=== PATIENT | female | born 1965 | race Caucasian/White ===

== ENCOUNTER 2018-05-11 21:43 | Inpatient (IN) | payer OTHER ==
--- NOTE | 2018-05-11 22:51 | PDOC ---
History of Present Illness <Rosa M Calderón - Last Filed: 05/12/18 03:15> - General History Source: Patient Exam Limitations: No Limitations <Vianey De Dios - Last Filed: 05/12/18 03:39> - General Chief Complaint: Pain Stated Complaint: PAIN Time Seen by Provider: 05/11/18 22:15 Past History <Rosa M Calderón - Last Filed: 05/12/18 03:15> - Past Medical History COPD: No Psychiatric Problems: Yes - Surgical History Cholecystectomy: Yes - Suicide/Smoking/Psychosocial Hx Smoking History: Current every day smoker Number of Cigarettes Smoked Daily: 20 Information on smoking cessation initiated: No <VaVianey - Last Filed: 05/12/18 03:39> - Past Medical History Allergies/Adverse Reactions: Allergies Allergy/AdvReac Type Severity Reaction Status Date / Time Penicillins Allergy Verified 05/11/18 21:47 Home Medications: Ambulatory Orders Allopurinol [Zyloprim -] 100 mg PO BID 05/11/18 Divalproex *ER* [Depakote *ER* -] 750 mg PO BID 05/11/18 Furosemide 40 mg PO DAILY 05/11/18 Levothyroxine [Synthroid -] 125 mcg PO DAILY 05/11/18 Multivitamin [Multiple Vitamins] 1 each PO DAILY 05/11/18 Quetiapine Fumarate [Seroquel -] 400 mg PO BID 05/11/18 *Physical Exam - Vital Signs Last Vital Signs Temp Pulse Resp BP Pulse Ox 97.9 F 107 H 131/83 97 05/11/18 21:48 05/11/18 21:48 05/11/18 21:48 05/11/18 21:48 <Rosa M Calderón - Last Filed: 05/12/18 03:15> - Vital Signs Last Vital Signs Temp Pulse Resp BP Pulse Ox 97.9 F 107 H 131/83 97 05/11/18 21:48 05/11/18 21:48 05/11/18 21:48 05/11/18 21:48 - Physical Exam General Appearance: No: Apparent Distress Respiratory/Chest: positive: Lungs Clear, Normal Breath Sounds. negative: Respiratory Distress Cardiovascular: positive: Regular Rhythm, Regular Rate, S1, S2. negative: Murmur Gastrointestinal/Abdominal: positive: Tender (mild TTP in LLQ), Soft. negative : Distended, Guarding, Rebound, Mass Rectal Exam: positive: other (Unable to obtain any stool sample on MARIA C; rectal vault empty). negative: hemorrhoids Integumentary: positive: Normal Color Neurologic: positive: Alert, Normal Mood/Affect <Vianey De Dios - Last Filed: 05/12/18 03:39> Moderate Sedation - Procedure Monitoring Vital Signs: Procedure Monitoring Vital Signs Temperature 97.9 F 05/11/18 21:48 Pulse Rate 107 H 05/11/18 21:48 Respiratory Rate Blood Pressure 131/83 05/11/18 21:48 O2 Sat by Pulse Oximetry (%) 97 05/11/18 21:48 <Rosa M Calderón - Last Filed: 05/12/18 03:15> - Procedure Monitoring Vital Signs: Procedure Monitoring Vital Signs Temperature 97.9 F 05/11/18 21:48 Pulse Rate 107 H 05/11/18 21:48 Respiratory Rate Blood Pressure 131/83 05/11/18 21:48 O2 Sat by Pulse Oximetry (%) 97 05/11/18 21:48 <Vianey De Dios - Last Filed: 05/12/18 03:39> ED Treatment Course - LABORATORY CBC & Chemistry Diagram: 05/11/18 22:51 05/11/18 23:13 - ADDITIONAL ORDERS Additional order review: Laboratory Results 05/11/18 05/11/18 23:13 22:51 Sodium 141 Cancelled Potassium 3.0 L Cancelled Chloride 103 Cancelled Carbon Dioxide 31 Cancelled Anion Gap 7 L Cancelled BUN 54 H Cancelled Creatinine 2.5 H Cancelled Creat Clearance w eGFR 20.07 Cancelled Random Glucose 98 Cancelled Calcium 8.5 Cancelled 05/11/18 22:51 RBC 4.13 MCV 95.4 MCHC 34.5 RDW 14.8 MPV 9.1 Neutrophils % 71.9 Lymphocytes % 15.6 Monocytes % 11.1 H Eosinophils % 0.9 Basophils % 0.5 - RADIOLOGY Radiology Studies Ordered: Category Date Time Status YESSICA [CHEST X-RAY PORTABLE*] [RAD] Stat Radiology 05/12/18 02:49 Taken - Medications Given in the ED: ED Medications Discontinued Medications Generic Name Dose Route Start Last Admin Trade Name Freq PRN Reason Stop Dose Admin Acetaminophen 650 mg 05/12/18 00:36 05/12/18 00:43 Tylenol - PO 05/12/18 00:37 650 mg ONCE ONE Administration Magnesium Sulfate 2 gm 05/11/18 23:56 05/12/18 00:20 Magnesium Sulfate IVPB 05/11/18 23:57 2 gm ONCE ONE Administration Potassium Chloride 40 meq 05/11/18 23:56 05/12/18 00:20 K-Dur - PO 05/11/18 23:57 40 meq ONCE ONE Administration Potassium Chloride 20 meq 05/12/18 02:19 05/12/18 02:29 K-Dur - PO 05/12/18 02:20 20 meq ONCE ONE Administration <Rosa M Calderón - Last Filed: 05/12/18 03:15> - LABORATORY CBC & Chemistry Diagram: 05/11/18 22:51 05/11/18 23:13 <Vianey De Dios - Last Filed: 05/12/18 03:39> Medical Decision Making - Medical Decision Making 52 y/o F hx of depression, hypothyroidism, kidney disease (on Lasix), cholecystectomy 2015, hysterectomy 2016 presents with lower abdominal pain from today along with rectal bleeding. Mentions she suffers from chronic constipation for years. Yesterday, she took 3 pills of Hair laxative caplets. Today, around 1 PM, had BM with BRBPR. Later had some diarrhea with blood and now states she is just having bleeding from rectum. Denies rectal pain , fever, sob, cp, n/v, melena. Last colonoscopy was 2015 which was unremarkable per patient. No hemorrhoids noted on exam Unable to get guaiac as no stool in vault Consider diverticulitis? Plan: Labs, CT A/P 05/11/18 22:51 Labs show K of 3 (likely due to Lasix use) - repleted via PO potassium BUN/Cr elevated (patient hx of kidney disease, no prior to trend to) Will get CT A/P without contrast 05/12/18 00:46 CT A/P raises concern for colitis, possibly infectious in origin Patient having active rectal bleeding in ER Will start on Levaquin and Flagyl Repeat labs ordered Patient to be admitted for further eval 05/12/18 03:29 <Vianey De Dios - Last Filed: 05/12/18 03:39> *DC/Admit/Observation/Transfer - Discharge Dispostion Decision to Admit order: Yes <Rosa M Calderón - Last Filed: 05/12/18 03:15> - Discharge Dispostion Decision to Admit order: Yes <Vianey De Dios - Last Filed: 05/12/18 03:39> Diagnosis at time of Disposition: Colitis - Discharge Dispostion Condition at time of disposition: Stable
[2018-05-11 22:58] LABS: BASO % 0.5 % (0-2.0); EOS % 0.9 % (0-4.5); HEMATOCRIT 39.4 % (32.4-45.2); HEMOGLOBIN 13.6 GM/dL (10.7-15.3); LYMPH % 15.6 % (8-40); MCH 32.9 pg (25.7-33.7); MCHC 34.5 g/dl (32.0-36.0); MEAN CELL VOLUME 95.4 fl (80-96); MEAN PLT VOLUME 9.1 fl (7.5-11.1); MONO % 11.1 % (3.8-10.2); NEUT % 71.9 % (42.8-82.8); PLATELET COUNT 158 K/MM3 (134-434); RBC 4.13 M/mm3 (3.60-5.2); RDW 14.8 % (11.6-15.6); WHITE BLOOD COUNT 8.5 K/mm3 (4.0-10.0)
[2018-05-11 23:48] LABS: ANION GAP 7 MMOL/L (8-16); BLOOD UREA NITROGEN 54 mg/dL (7-18); CALCIUM 8.5 mg/dL (8.5-10.1); CHLORIDE 103 mmol/L (98-107); CO2 31 mmol/L (21-32); CREATININE 2.5 mg/dL (0.55-1.3); GLUCOSE,RANDOM 98 mg/dL (74-106); SODIUM 141 mmol/L (136-145)
[2018-05-11] MEDS ORDERED: MAGNESIUM SULF 50% (8.12 MEQ/2 ML-1 GM VIAL) IVPB ONE (23:56)
[2018-05-11] MEDS ORDERED: POTASSIUM CHLORIDE TABS 20 MEQ TABLET.ER (FP) PO ONE (23:56)
[2018-05-12] MEDS ORDERED: POTASSIUM CHLORIDE TABS 20 MEQ TABLET.ER (FP) PO ONE ×3 (00:12→02:22)
[2018-05-12] MEDS ORDERED: MAGNESIUM SULF 50% (8.12 MEQ/2 ML-1 GM VIAL) ONE (00:13)
[2018-05-12] MEDS ORDERED: ACETAMINOPHEN 325 MG TABLET (FP) PO ONE ×2 (00:36→21:38)
[2018-05-12] MEDS ORDERED: ACETAMINOPHEN 325 MG TABLET (FP) ONE (00:40)
--- NOTE | 2018-05-12 03:53 | PN ---
Teaching Attending Note Name of Resident: Sebas Anthony ATTENDING PHYSICIAN STATEMENT I saw and evaluated the patient. I reviewed the resident's note and discussed the case with the resident. I agree with the resident's findings and plan as documented. SUBJECTIVE: Seen and examined; please see resident note for further historical details. Briefly, this is a 52 y/o female presenting to the ER with a CC of abdominal pain and rectal bleeding. She is a patient of Dr. Weathers. She was consitpated for several days causing some discomfort; she took several stool softeners and has since had copious amounts of bloody diarrhea since (she did not try to give the number). She has a history of CKD that she attributes to antidepressant ( maybe [place]?) use and states that her baseline Cr is ~1.9. This is her first visit here and we don't have any baseline labs. CT done in the ER shows moderate nonspecific wall thickening of the descending and sigmoid colon most likely due to infectious colitis, though they couldn't rule out mild ischemic colitis. Mild hepatomegaly and steatosis noted. Furthermore, they could not rule out any renal cortical mass and stated OP MRI may be required. She has no neurological complaints but the report incidentally mentions moderate to severe degenerative disc disease in the lower lumbar spine with moderate to severe spinal canal and neural foraminal narrowing in the lower levels. 10 sys ROS done and negative aside from HPI PMH, PSH, Family hx, Social hx reviewed Medication list reviewed OBJECTIVE: VS, labs, imaging reviewed NAD, AAO, resting comfortably in bed NC AT EOMI PERRLA RRR s1/2 no mgr NT ND +BS CN2-12 wnl, no fnd Normal mood, appropriate affect CT abdoen and pelvis discussed in HPI ASSESSMENT AND PLAN: Patient presents for bloody diarrhea; found to have infectious vs. mild ischemic colitis with THERESE on CKD and incidentally found to have potential renal mass as well as moderate to severe degenerative disc disease alongside moderate to severe canal/foramenal narrowing in lumbar area. 1) Bloody Diarrhea likely 2/2 Acute Colitis -Infectious vs. ischemic; CT results noted, awaiting final report. -Checking lactate, LDH, CPK; empirically covering with levaquin/flagyl. Check lipid pannel -NPO, protonix, consulting her GI specialist Dr. Webb. She states she had a scope 2 years ago with only polyps found. -Followup stool studies and bloodwork 2) THERESE on CKD -Hydrating with LR@100/hr; obtain FeUrea (on lasix at home) and consider HILLARY -Likely 2/2 volume depletion as well as nephrotoxic meds. Hold all nephrotoxins. 3) Moderate to severe spinal canal and neural foraminal narrowing/mod to severe degenerative disc disease -Consider checking L-spine MRI; if we do we should include the kidneys. Will hold off on ordering to see if any OP workup has been done (can contact PCP in the morning). 4) Depression -Reconcile and continue home medications assuming they are not nephrotoxic 5) Hx Hypothyroidism -Check TSH; continue LT4
--- NOTE | 2018-05-12 04:00 | HP ---
CHIEF COMPLAINT: BRBPR PCP: Straight Truck Driver: Dr. Bates GI: Dr. Webb HISTORY OF PRESENT ILLNESS: 52yo F with history of depression, CKD (baseline 1.9 Cr), chronic constipation, hypothyroidism who presents today with BRBPR and mid-abdomen discomfort today. Pt reports she had multiple bouts of diarrhea with blood that was evident in the physical bowl. Pt reports she took 3 stool softener pills to help with her constipation. Afterwards she developed diarrhea with bright blood (she did not try to estimate number of episodes). She reports having a colonoscopy 2 years ago performed by Dr[address] Webb, with multiple polypectomies, however (as reported by the patient) the polyps were benign. In the ED CT A/P was performed which showed moderate wall thickening of the descending and sigmoid colon suggestive of infectious vs. ischemic colitis. Incidentally, mod to severe spinal canal and neural foraminal narrowing was found in the lower lumbar spine, however pt denies any parasthesias, lower extremity weakness, changes in urinary habits, and nadia lower lumbar pain at this moment Recent Travel: Denies PAST MEDICAL HISTORY: Depression CKD Chronic constipation PAST SURGICAL HISTORY: Cholecystectomy 2016 Hysterectomy 2011 Social History: Smoking: Denies Alcohol: Denies Drugs: Denies Family History: Denies any family history of colon ca Allergies Penicillins Allergy (Verified 05/11/18 21:47) --Rash when child HOME MEDICATIONS: Home Medications Medication Instructions Recorded Allopurinol [Zyloprim -] 100 mg PO BID 05/11/18 Divalproex *ER* [Depakote *ER* -] 750 mg PO BID 05/11/18 Furosemide 40 mg PO DAILY 05/11/18 Levothyroxine [Synthroid -] 125 mcg PO DAILY 05/11/18 Multivitamin [Multiple Vitamins] 1 each PO DAILY 05/11/18 Quetiapine Fumarate [Seroquel -] 400 mg PO BID 05/11/18 REVIEW OF SYSTEMS As per HPI PHYSICAL EXAMINATION Vital Signs 05/11/18 21:48 Temperature 97.9 F Pulse Rate 107 H Blood Pressure 131/83 O2 Sat by Pulse 97 Oximetry (%) GENERAL: Awake, alert, and fully oriented, in no acute distress. HEENT: NC/AT, VERONICA, sclera anicteric, MMM, LUNGS: CTA bilaterally. No wheezes, and no crackles. No accessory muscle use. HEART: RRR , normal S1 and S2 without murmur ABDOMEN: Soft, obese, NT/ND, normoactive BS, no guarding, no rebound, no organomegaly RECTAL: Refused MUSCULOSKELETAL: No CVA tenderness. EXTREMITIES: 2+ distal pulses, warm, well-perfused. No calf tenderness. Nonpitting edema present in b/l ankles NEUROLOGICAL: smokehouse operator II-XII intact. Lower extremity sensation intact b/l. Lower extremity strength 5/5 symmetrical. Normal speech. PSYCHIATRIC: Flat affect. Good eye contact. SKIN: Warm, dry, no rashes Laboratory Results 05/11/18 05/11/18 05/11/18 22:51 22:51 23:13 WBC 8.5 RBC 4.13 Hgb 13.6 Hct 39.4 MCV 95.4 MCH 32.9 MCHC 34.5 RDW 14.8 Plt Count 158 MPV 9.1 Absolute Neuts (auto) 6.1 Neutrophils % 71.9 Lymphocytes % 15.6 Monocytes % 11.1 H Eosinophils % 0.9 Basophils % 0.5 Nucleated RBC % 0 Sodium Cancelled 141 Potassium Cancelled 3.0 L Chloride Cancelled 103 Carbon Dioxide Cancelled 31 Anion Gap Cancelled 7 L BUN Cancelled 54 H Creatinine Cancelled 2.5 H Creat Clearance w eGFR Cancelled 20.07 Random Glucose Cancelled 98 Calcium Cancelled 8.5 ASSESSMENT/PLAN: BRBPR 2/2 to acute colitis/stercolitis Acute on chronic kidney insufficiency Spinal canal stenosis with DDD Incidental Renal Cortical mass Depression Hypothyroidism --Likely 2/2 to chronic constipation vs. infectious --Reviewed CT imaging --Continue Levaquin 750mg qDaily and Flagyl 500mg q8h IVPB for empiric coverage --Monitor H/H; now WNL --LR@100cc/hr --NPO for now --Stool cultures ordered --Protonix BID ordered --GI consulted --THERESE likely 2/2 to prerenal causes --FEUrea ordered --Renal ultrasound considered if initial hydration does not improve --Hold home Lasix and avoid nephrotoxic agents --Outpatient MRI f/u needed for renal cortical mass as recommended by radiology --Consider MRI L-spine and possible neurosurgical consult if cannot obtain outpatient reports --Stable neurological symptoms at this point --Check TSH --Continue Synthroid once home doses verified --Continue home antidepressants FEN: Fluid: LR @100cc/hr Electrolyte abnormalities: Hypokalemia; repleted in ED and wll monitor Nutrition: NPO currently PPX: DVT - SCDs; AC on hold due to bleeding GI - Protonix BID IVP Dispo: Med-surg Case discussed with Dr. Oscar Anthony, DO - IM PGY-2 Visit type - Emergency Visit Emergency Visit: Yes ED Registration Date: 05/12/18 Care time: The patient presented to the Emergency Department on the above date and was hospitalized for further evaluation of their emergent condition. - New Patient This patient is new to me today: Yes Date on this admission: 05/12/18 - Critical Care Critical Care patient: No
[2018-05-12] MEDS ORDERED: SODIUM CHLORIDE 1,000 ML IV SCH (04:15)
[2018-05-12] MEDS ORDERED: LACTATED RINGERS SOLUTION 1,000 ML/1,000 ML INFUS.BAG IV SCH (04:30)
[2018-05-12] MEDS ORDERED: ACETAMINOPHEN 1000 MG/100 ML VIAL (NON FORMULARY) IVPB ONE (06:14)
[2018-05-12 06:33] LABS: BASO % 0.2 % (0-2.0); EOS % 0.5 % (0-4.5); HEMATOCRIT 39.2 % (32.4-45.2); HEMOGLOBIN 13.7 GM/dL (10.7-15.3); LYMPH % 17.4 % (8-40); MCH 32.8 pg (25.7-33.7); MCHC 34.9 g/dl (32.0-36.0); MEAN CELL VOLUME 94.1 fl (80-96); MEAN PLT VOLUME 9.6 fl (7.5-11.1); MONO % 11.7 % (3.8-10.2); NEUT % 70.2 % (42.8-82.8); PLATELET COUNT 176 K/MM3 (134-434); RBC 4.17 M/mm3 (3.60-5.2); RDW 14.9 % (11.6-15.6); WHITE BLOOD COUNT 12.6 K/mm3 (4.0-10.0)
[2018-05-12] MEDS ORDERED: ACETAMINOPHEN INJECTION 100 ML IVPB ONE (07:06)
[2018-05-12 07:17] LABS: ANION GAP 8 MMOL/L (8-16); BLOOD UREA NITROGEN 49 mg/dL (7-18); CALCIUM 9.6 mg/dL (8.5-10.1); CHLORIDE 104 mmol/L (98-107); CO2 26 mmol/L (21-32); CREATININE 2.4 mg/dL (0.55-1.3); GLUCOSE,RANDOM 116 mg/dL (74-106); MAGNESIUM 3.1 mg/dL (1.8-2.4); PHOSPHOROUS 3.3 mg/dL (2.5-4.9); POTASSIUM 3.9 mmol/L (3.5-5.1); SODIUM 137 mmol/L (136-145)
[2018-05-12] MEDS: PANTOPRAZOLE SODIUM 40 MG VIAL IVPUSH SCH ×2 (09:28→21:17)
--- NOTE | 2018-05-12 10:50 | PN ---
Progress Note (short form) - Note Progress Note: states abdominal pain has resolved. no episodes of diarrhea since this AM and bleeding has stopped. denies Cp, SOB, fever, chills, N/v/C, states she suffers from chronic constipation and typically takes laxatives with good response.1st episode of BRBPR. no recent abx use. no sick contacts Current Medications Generic Name Dose Route Start Last Admin Trade Name Shelley PRN Reason Stop Dose Admin Lactated Ringer's 1,000 ml in 1,000 mls @ 100 mls/hr 05/12/18 04:30 05/12/18 04:45 Lactated Ringers Solution IV 100 mls/hr ASDIR ELDON Administration Metronidazole 500 mg in 100 mls @ 100 mls/hr 05/12/18 10:00 05/12/18 09:28 Flagyl 500mg Premixed Ivpb - IVPB 100 mls/hr Q8H-IV ELDON Administration Levofloxacin 750 mg in 150 mls @ 100 mls/hr 05/13/18 10:00 Levaquin 750 Mg Premixed Ivpb - IVPB DAILY ELDON Protocol Pantoprazole Sodium 40 mg 05/12/18 10:00 05/12/18 09:28 Protonix Iv IVPUSH 40 mg BID ELDON Administration Last Vital Signs Temp Pulse Resp BP Pulse Ox 98.1 F 97 H 16 130/76 96 05/12/18 08:18 05/12/18 08:18 05/12/18 08:18 05/12/18 08:18 05/12/18 08:18 General NAD CV S1 S2 RRR no murmur/rub/gallop Lungs CTA B/L no wheezing/rales/rhonchi abdomen soft NT/ND obese CBCD WBC 12.6 K/mm3 (4.0-10.0) H 05/12/18 05:37 RBC 4.17 M/mm3 (3.60-5.2) 05/12/18 05:37 Hgb 13.7 GM/dL (10.7-15.3) 05/12/18 05:37 Hct 39.2 % (32.4-45.2) 05/12/18 05:37 MCV 94.1 fl (80-96) 05/12/18 05:37 MCHC 34.9 g/dl (32.0-36.0) 05/12/18 05:37 RDW 14.9 % (11.6-15.6) 05/12/18 05:37 Plt Count 176 K/MM3 (134-434) 05/12/18 05:37 MPV 9.6 fl (7.5-11.1) 05/12/18 05:37 CMP Sodium 137 mmol/L (136-145) 05/12/18 05:37 Potassium 3.9 mmol/L (3.5-5.1) 05/12/18 05:37 Chloride 104 mmol/L (98-107) 05/12/18 05:37 Carbon Dioxide 26 mmol/L (21-32) 05/12/18 05:37 Anion Gap 8 MMOL/L (8-16) 05/12/18 05:37 BUN 49 mg/dL (7-18) H 05/12/18 05:37 Creatinine 2.4 mg/dL (0.55-1.3) H 05/12/18 05:37 Creat Clearance w eGFR 21.04 (>60) 05/12/18 05:37 Calcium 9.6 mg/dL (8.5-10.1) 05/12/18 05:37 A/P 52yo F with PMH depression, hypothyroid, CKD presents with abdominal pain and BRBPR 1. Infectious colitis- do not suspect ischemic based on clinical presentation and labs. on Flagyl and levaquin day 1. IVF and pain control. will likely require colonoscopy inpatient vs outpatient per GI. f/u stool studies. GI on board 2. acute on CKD- possibly medication vs infectin vs dehydration. baseline Cr 1.9. will cont to hydrate. nothing seen on CT scan concerning. consider nephrology 3. hypokalemia- resolved 4. hypothyroid- cont LT4 5. depression- cont home medications 6. gout- would hold allopurinol in setting of kamron 7. DVT ppx- start hep sq Visit type - Emergency Visit Emergency Visit: Yes ED Registration Date: 05/12/18 Care time: The patient presented to the Emergency Department on the above date and was hospitalized for further evaluation of their emergent condition. - New Patient This patient is new to me today: Yes Date on this admission: 05/12/18 - Critical Care Critical Care patient: No - Discharge Referral Referred to [facility] Med P.C.: No
[2018-05-12 11:04] VITALS: BMI 37.4
--- NOTE | 2018-05-12 11:29 | CON.GI ---
Consult Consult Specialty:: Gastroenterology Referred by:: Dr Sebas Anthony Reason for Consultation:: Diarrhea and rectal bleeding - History of Present Illness Chief Complaint: Lower abdominal cramps, diarrhea and bleeding History of Present Illness: 52F was constipated and took 3 Colace tablets on 05/10. On 05/11 she had a hard formed BM followed my multiple diarrhea stools and lower abdominal cramps. Developed hematochezia with hemorrhoidal itch last night. Today everything has resolved and she is hungry. She has colon polyps removed by me in 2015. No recent foreign travel or antibiotic usage. - History Source History Provided By: Patient Limitations to Obtaining History: No Limitations - Past Medical History Cardio/Vascular: Yes: HTN, Hyperlipdemia Gastrointestinal: Yes: Constipation, Other (colon polyps removed 2015) Hepatobiliary: Yes: Cholelithiasis (s/p lap choly), Other (fatty liver) Renal/: Yes: Renal Failure (? 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, robotic TAHBSO for uterine cancer 2016 [facility]) Psych: Yes: Depression Endocrine: Yes: Hypothyroidism - Past Surgical History Past Surgical History: Yes: Breast Biopsy (R breast lumpectomy for cancer DCIS) , Colonoscopy, Hysterectomy (robotic TAHBSO for uterine cancer 2016 [facility]) Additional Surgical History: Left thoracotomy to remove benign tumor - Alcohol/Substance Use Hx Alcohol Use: No History of Substance Use: reports: None - Smoking History Smoking history: Current every day smoker Have you smoked in the past 12 months: No Aproximately how many cigarettes per day: 20 - Social History Usual Living Arrangement: With Significant Other ADL: Independent 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 Place of : [facility] History of Recent Travel: No Home Medications - Allergies Allergies/Adverse Reactions: Allergies Allergy/AdvReac Type Severity Reaction Status Date / Time Penicillins Allergy Verified 05/11/18 21:47 - Home Medications Home Medications: Ambulatory Orders Allopurinol [Zyloprim -] 100 mg PO BID 05/11/18 Divalproex *ER* [Depakote *ER* -] 750 mg PO BID 05/11/18 Furosemide 40 mg PO DAILY 05/11/18 Levothyroxine [Synthroid -] 125 mcg PO DAILY 05/11/18 Multivitamin [Multiple Vitamins] 1 each PO DAILY 05/11/18 Quetiapine Fumarate [Seroquel -] 400 mg PO BID 05/11/18 Family Disease History - Family Disease History Family Disease History: CA: Mother ( 58 renal cancer), Other: Father (COPD) Review of Systems - Review of Systems Constitutional: reports: No Symptoms Eyes: reports: No Symptoms HENT: reports: No Symptoms Neck: reports: No Symptoms Cardiovascular: reports: No Symptoms Respiratory: reports: No Symptoms Gastrointestinal: reports: Abdominal Pain, Constipation, Diarrhea, Rectal Bleeding Breasts: reports: No Symptoms Reported Musculoskeletal: reports: No Symptoms Psychiatric: reports: Anxiety Physical Exam-GI Vital Signs: Vital Signs Temperature 98.3 F 05/12/18 10:48 Pulse Rate 101 H 05/12/18 10:48 Respiratory Rate 18 05/12/18 10:48 Blood Pressure 146/86 05/12/18 10:48 O2 Sat by Pulse Oximetry (%) 99 05/12/18 10:48 CBC,CMP WBC 12.6 K/mm3 (4.0-10.0) H 05/12/18 05:37 RBC 4.17 M/mm3 (3.60-5.2) 05/12/18 05:37 Hgb 13.7 GM/dL (10.7-15.3) 05/12/18 05:37 Hct 39.2 % (32.4-45.2) 05/12/18 05:37 MCV 94.1 fl (80-96) 05/12/18 05:37 MCH 32.8 pg (25.7-33.7) 05/12/18 05:37 MCHC 34.9 g/dl (32.0-36.0) 05/12/18 05:37 RDW 14.9 % (11.6-15.6) 05/12/18 05:37 Plt Count 176 K/MM3 (134-434) 05/12/18 05:37 MPV 9.6 fl (7.5-11.1) 05/12/18 05:37 Absolute Neuts (auto) 8.8 K/mm3 (1.5-8.0) H 05/12/18 05:37 Neutrophils % 70.2 % (42.8-82.8) 05/12/18 05:37 Lymphocytes % 17.4 % (8-40) 05/12/18 05:37 Monocytes % 11.7 % (3.8-10.2) H 05/12/18 05:37 Eosinophils % 0.5 % (0-4.5) 05/12/18 05:37 Basophils % 0.2 % (0-2.0) 05/12/18 05:37 Nucleated RBC % 0 % (0-0) 05/12/18 05:37 Sodium 137 mmol/L (136-145) 05/12/18 05:37 Potassium 3.9 mmol/L (3.5-5.1) 05/12/18 05:37 Chloride 104 mmol/L (98-107) 05/12/18 05:37 Carbon Dioxide 26 mmol/L (21-32) 05/12/18 05:37 Anion Gap 8 MMOL/L (8-16) 05/12/18 05:37 BUN 49 mg/dL (7-18) H 05/12/18 05:37 Creatinine 2.4 mg/dL (0.55-1.3) H 05/12/18 05:37 Creat Clearance w eGFR 21.04 (>60) 05/12/18 05:37 Random Glucose 116 mg/dL (74-106) H 05/12/18 05:37 Lactic Acid 1.6 mmol/L (0.4-2.0) 05/12/18 09:25 Calcium 9.6 mg/dL (8.5-10.1) 05/12/18 05:37 Phosphorus 3.3 mg/dL (2.5-4.9) 05/12/18 05:37 Magnesium 3.1 mg/dL (1.8-2.4) H 05/12/18 05:37 LD Total 311 U/L (84-246) H 05/12/18 05:37 Creatine Kinase 153 U/L (26-192) 05/12/18 05:37 Creatine Kinase Index 1.6 % (0.0-5.0) 05/12/18 05:37 CK-MB (CK-2) 2.5 ng/mL (0.5-3.6) 05/12/18 05:37 TSH 1.66 uIU/ml (0.358-3.74) 05/12/18 05:37 Current Medications Generic Name Dose Route Start Last Admin Trade Name Shelley PRN Reason Stop Dose Admin Lactated Ringer's 1,000 ml in 1,000 mls @ 100 mls/hr 05/12/18 04:30 05/12/18 04:45 Lactated Ringers Solution IV 100 mls/hr ASDIR ELDON Administration Metronidazole 500 mg in 100 mls @ 100 mls/hr 05/12/18 10:00 05/12/18 09:28 Flagyl 500mg Premixed Ivpb - IVPB 100 mls/hr Q8H-IV ELDON Administration Levofloxacin 750 mg in 150 mls @ 100 mls/hr 05/13/18 10:00 Levaquin 750 Mg Premixed Ivpb - IVPB DAILY ELDON Protocol Pantoprazole Sodium 40 mg 05/12/18 10:00 05/12/18 09:28 Protonix Iv IVPUSH 40 mg BID ELDON Administration Constitutional: Yes: No Distress Eyes: Yes: Conjunctiva Clear HENT: Yes: Atraumatic Neck: Yes: Supple Cardiovascular: Yes: Regular Rate and Rhythm Respiratory: Yes: Regular, Other (left thoracotomy incision) Gastrointestinal Inspection: Yes: Scars (healed robotic and laparoscopic incisions) ...Auscultate: Yes: Normoactive Bowel Sounds ...Palpate: Yes: Soft, Other (nontender) ...Percussion: Yes: Tympanitic ...Rectal Exam: Yes: Guaiac Negative, Hemorrhoids/External Edema: No Peripheral Pulses WNL: Yes Neurological: Yes: Alert, Oriented Labs: CBC, BMP 05/12/18 05:37 05/12/18 05:37 Laboratory Tests 05/11/18 05/12/18 23:13 05:37 BUN 54 H 49 H Creatinine 2.5 H 2.4 H Imaging - Results Cat Scan: Report Reviewed (Bakari Mo Name: KAYLEY SPAULDING DEPARTMENT OF RADIOLOGY Phys: Vianey De Dios : 1965 Age: 52 Sex: F [facility] Acct: [id number] Loc: [address] Exam Date: 05/12/18 Status: [place] [address] Unit Number: [id number] EXAM#: TYPE/EXAM: RESULT: [id number] CT/ABDOMEN PELVIS CT W/O CONTR History : abdominal pain CT Scan of the abdomen and pelvis with oral contrast FINDINGS: Surgical sutures right middle lobe of right lung Fatty infiltration of the liver Status post cholecystectomy Circumferential mural thickening of the left colon with mild inflammatory changes noted Mild narrowing of segment of transverse colon adjacent to the left colon Lobulation of both kidneys probably lobulation Status post hysterectomy The spleen, adrenal glands and pancreas are unremarkable. There are no gallstones. There is no hydronephrosis, renal masses or renal calculi. There is no retroperitoneal lymphadenopathy. There is no abdominal aortic aneurysm. There are no inflammatory changes of the appendix There are no fluid collections in the abdomen or pelvis. There is no bowel obstruction. The urinary bladder is unremarkable. IMPRESSION: Abnormal left colon with mild periinflammatory changes could represent nonspecific colitis. Questionable narrowing at junction of left colon and transverse colon should be further investigated to exclude pathology Fatty infiltration of the liver Status post cholecystectomy Probable lobulation of kidneys but can be confirmed by additional imaging PRELIMINARY REPORT PROVIDED BY RADIOLOGIST [employer]UTTER Reported By: Tod Whyte MD 05/12/18 1133 Technologist: Kaz Hall Transcribed Date/Time: 05/12/18 1133 Deburrer: Tod Whyte Printed Date/Time: By: Signed by: Tod Whyte Signed on: 12-May-2018 11: 35), Image Reviewed (thickened left colon, area of narrowing distal TX colon) Problem List - Problems (1) Colitis Assessment/Plan: Suspect resolving infectious colitis with hemorhoidal bleeding but will need a colonoscopy to evaluate the area of narroing at the junction of the transverse and left colon. I have discussed colonoscopy in detail informing the patient of such complications as perforation and hemorrhage. She has granted an informed consent. I peggy prep her to colonoscopy on 05/14. I communicate with Dr Corbett Code(s): K52.9 - NONINFECTIVE GASTROENTERITIS AND COLITIS, UNSPECIFIED (2) Abnormal CT scan, gastrointestinal tract Assessment/Plan: Suspect this will prove to be an artifact but will do colonoscopy to exclude a cancer Code(s): R93.3 - ABNORMAL FINDINGS ON DX IMAGING OF PRT DIGESTIVE TRACT (3) Hematochezia Code(s): K92.1 - MELENA (4) History of colon polyps Code(s): Z86.010 - PERSONAL HISTORY OF COLONIC POLYPS (5) History of uterine cancer Code(s): Z85.42 - PERSONAL HISTORY OF MALIGNANT NEOPLASM OF OTH PRT UTERUS (6) History of breast cancer Code(s): Z85.3 - PERSONAL HISTORY OF MALIGNANT NEOPLASM OF BREAST (7) Depression Code(s): F32.9 - MAJOR DEPRESSIVE DISORDER, SINGLE EPISODE, UNSPECIFIED (8) Renal failure Assessment/Plan: Suspect prerenal azotemia superimposed on chronic renal insufficiency. Will hydrate Code(s): N19 - UNSPECIFIED KIDNEY FAILURE (9) Hypothyroid Code(s): E03.9 - HYPOTHYROIDISM, UNSPECIFIED (10) Hypertension Code(s): I10 - ESSENTIAL (PRIMARY) HYPERTENSION (11) Hyperlipidemia Code(s): E78.5 - HYPERLIPIDEMIA, UNSPECIFIED (12) Nonalcoholic fatty liver disease Code(s): K76.0 - FATTY (CHANGE OF) LIVER, NOT ELSEWHERE CLASSIFIED Assessment/Plan Impression: Infectious colitis with bleeding likely compounded by hemorrhoidal bleeding Abnormal CT with narrowing transverse/left colon junction. Will need to exclude a malignancy Personal h/o colon polyps Prerenal azotemia from diarrhea losses superimprosed on CKD (? patient relates to antidepressants) Nonalcoholic fatty liver with normal LFTs, Suspect NAFLD but will do Fibroscan when she follows up in the office Plan: Advance diet today IV rehydration 05/13 prep for colonoscopy on 05/14 Fibroscan as outpatient I advised the patient to quit smoking Communicated with Dr Corbett
[2018-05-12] MEDS: DEXTROSE 5%-0.45% SALINE 1,000 ML IV SCH ×2 (12:26→20:42)
[2018-05-12] MEDS ORDERED: QUEtiapine FUMARATE 400 MG TABLET PO SCH (13:00)
[2018-05-12] MEDS: MULTIVITAMINS (DAILY MVI) TABLET (FP) PO SCH (14:03)
[2018-05-12] MEDS: HEPARIN NA (PORCINE) 5,000 UNITS/ML 1ML VIAL SQ SCH ×2 (14:04→21:17)
[2018-05-12] MEDS: QUEtiapine FUMARATE 200 MG TABLET PO SCH ×2 (14:04→21:16)
[2018-05-12] MEDS ORDERED: PT OWN MED DRAWER 7, Y5N ONE ×2 (14:10→20:48)
[2018-05-12] MEDS: DIVALPROEX NA *ER* EXTEND REL 250 MG TABLET.SA PO SCH ×2 (15:20→21:17)
[2018-05-12 19:11] LABS: HEMATOCRIT 35.6 % (32.4-45.2); HEMOGLOBIN 12.2 GM/dL (10.7-15.3); MCH 32.9 pg (25.7-33.7); MCHC 34.2 g/dl (32.0-36.0); MEAN CELL VOLUME 96.1 fl (80-96); MEAN PLT VOLUME 9.6 fl (7.5-11.1); PLATELET COUNT 137 K/MM3 (134-434); RBC 3.71 M/mm3 (3.60-5.2); RDW 15.1 % (11.6-15.6)
--- NOTE | 2018-05-12 22:00 | EKG ---
Test Reason : Blood Pressure : / mmHG Vent. Rate : 095 BPM Atrial Rate : 095 BPM P-R Int : 140 ms QRS Dur : 080 ms QT Int : 368 ms P-R-T Axes : 052 017 021 degrees QTc Int : 462 ms NORMAL SINUS RHYTHM POSSIBLE LEFT ATRIAL ENLARGEMENT CANNOT RULE OUT ANTERIOR INFARCT , AGE UNDETERMINED ABNORMAL ECG NO PREVIOUS ECGS AVAILABLE Confirmed by VIKRAM JORDAN MD ([id number]) on 05/12/2018 10:00:25 PM Referred By: Confirmed By:VIKRAM JORDAN MD
[2018-05-13] MEDS: DEXTROSE 5%-0.45% SALINE 1,000 ML IV SCH ×3 (06:00→23:16)
[2018-05-13] MEDS: HEPARIN NA (PORCINE) 5,000 UNITS/ML 1ML VIAL SQ SCH ×3 (06:09→21:33)
[2018-05-13] MEDS: LEVOTHYROXINE NA 125 MCG TABLET (FP) PO SCH (06:09)
[2018-05-13 08:29] LABS: BASO % 0.4 % (0-2.0); EOS % 1.2 % (0-4.5); HEMATOCRIT 32.4 % (32.4-45.2); HEMOGLOBIN 11.1 GM/dL (10.7-15.3); LYMPH % 20.5 % (8-40); MCH 32.4 pg (25.7-33.7); MCHC 34.1 g/dl (32.0-36.0); MEAN CELL VOLUME 95.1 fl (80-96); MEAN PLT VOLUME 9.7 fl (7.5-11.1); MONO % 8.9 % (3.8-10.2); PLATELET COUNT 124 K/MM3 (134-434); RBC 3.41 M/mm3 (3.60-5.2); RDW 15.2 % (11.6-15.6); WHITE BLOOD COUNT 7.3 K/mm3 (4.0-10.0)
--- NOTE | 2018-05-13 08:43 | PN ---
Physical Exam: SUBJECTIVE: Patient seen and examined at bedside. No new complaints. No abdominal pain. Patient had loose BM yesterday with small amt of blood. No BM yest today. blood improving per patient. For colonoscopy in AM OBJECTIVE: Vital Signs Period Temp Pulse Resp BP Sys/Marrero Pulse Ox Last 24 Hr 98.0 F-100.6 F 91-106 18-20 108-146/70-86 96-99 GENERAL: The patient is awake, alert, and fully oriented, in no acute distress. HEAD: Normal with no signs of trauma. EYES: PERRL, extraocular movements intact, sclera anicteric, conjunctiva clear. No ptosis. LUNGS: Breath sounds equal, clear to auscultation bilaterally, no wheezes, no crackles, no accessory muscle use. HEART: Regular rate and rhythm, S1, S2 without murmur, rub or gallop. ABDOMEN: Soft, nontender, nondistended, normoactive bowel sounds, no guarding, no rebound, no hepatosplenomegaly, no masses. EXTREMITIES: 2+ pulses, warm, well-perfused, no edema. NEUROLOGICAL: Cranial nerves II through X grossly intact. Normal speech, gait not observed. SKIN: Warm, dry, normal turgor, no rashes or lesions noted Laboratory Results - last 24 hr 05/12/18 05/12/18 05/12/18 09:25 09:50 18:33 WBC 8.0 RBC 3.71 Hgb 12.2 Hct 35.6 MCV 96.1 H MCH 32.9 MCHC 34.2 RDW 15.1 Plt Count 137 D MPV 9.6 Lactic Acid 1.6 Urine Creatinine 63.0 Active Medications Generic Name Dose Route Start Last Admin Trade Name Freq PRN Reason Stop Dose Admin Bisacodyl 20 mg 05/13/18 18:00 Dulcolax - PO 05/13/18 18:01 ONCE ONE Divalproex Sodium 750 mg 05/12/18 13:45 05/12/18 21:17 Depakote *Er* - PO 750 mg BID ELDON Administration Heparin Sodium (Porcine) 5,000 unit 05/12/18 14:00 05/13/18 06:09 Heparin - SQ 5,000 unit TID ELDON Administration Metronidazole 500 mg in 100 mls @ 100 mls/hr 05/12/18 10:00 05/13/18 01:28 Flagyl 500mg Premixed Ivpb - IVPB 100 mls/hr Q8H-IV ELDON Administration Levofloxacin 500 mg in 100 mls @ 100 mls/hr 05/13/18 10:00 Levaquin 500 Mg Premixed Ivpb - IVPB DAILY ELDON Protocol Dextrose/Sodium Chloride 1,000 mls @ 150 mls/hr 05/12/18 12:30 05/13/18 06:00 D5-1/2ns - IV 150 mls/hr ASDIR ELDON Administration Levothyroxine Sodium 125 mcg 05/13/18 07:00 05/13/18 06:09 Synthroid - PO 125 mcg DAILY@0700 ELDON Administration Multivitamins/Minerals/Vitamin C 1 tab 05/12/18 13:00 05/12/18 14:03 Tab-A-Vit - PO 1 tab DAILY ELDON Administration Pantoprazole Sodium 40 mg 05/12/18 10:00 05/12/18 21:17 Protonix Iv IVPUSH 40 mg BID ELDON Administration Quetiapine Fumarate 400 mg 05/12/18 13:15 05/12/18 21:16 Seroquel - PO 400 mg BID ELDON Administration ASSESSMENT/PLAN: The patient is a 52 yo f w/ PMH depression, CKD, chronic constipation, hypothyroidism who comes to the ED c/o BRBPR. GIB being ruled out. #BRBPR likely 2/2 chronic constipation vs infection, r/o LGIB -GI consulted; Dr. Webb. For colonoscopy in AM. Bowel prep started. NPO past midnight. -IVF NS @ 100 while NPO -on levaquin 750mg daily (Day 3) -on flagyl 500mg q8h (day 3) -monitor Hb -f/u stool studies -protonix 40mg IV BID #THERESE on CKD likely 2/2 diarrhea -Cr. 2.4 (baseline 1.9) -c/w IVF NS @ 100 -treat diarrhea -holding nephrotoxic agents -Outpatient MRI f/u needed for renal cortical mass as recommended by radiology #Hypothyroidism- controlled -TSH WNL -c/w home synthroid #depression- controlled -c/w home psych meds #FEN -NS @ 100 -monitor lytes, replete PRN -NPO past midnight for colonoscopy #prophy -SCDs -holding AC until GIB ruled out -protonix 40mg BID IV #Dispo -admit med surg Visit type - Emergency Visit Emergency Visit: Yes ED Registration Date: 05/12/18 Care time: The patient presented to the Emergency Department on the above date and was hospitalized for further evaluation of their emergent condition. - New Patient This patient is new to me today: Yes Date on this admission: 05/13/18 - Critical Care Critical Care patient: No - Discharge Referral Referred to [facility] Med P.C.: No
[2018-05-13 08:55] LABS: ANION GAP 4 MMOL/L (8-16); BLOOD UREA NITROGEN 28 mg/dL (7-18); CALCIUM 8.4 mg/dL (8.5-10.1); CHLORIDE 108 mmol/L (98-107); CO2 28 mmol/L (21-32); CREATININE 2.1 mg/dL (0.55-1.3); GLUCOSE,RANDOM 93 mg/dL (74-106); POTASSIUM 3.7 mmol/L (3.5-5.1); SODIUM 141 mmol/L (136-145)
[2018-05-13] MEDS ORDERED: PT OWN MED DRAWER 7, Y5N ONE ×3 (08:57→19:52)
[2018-05-13] MEDS ORDERED: PEG3350/SOD SULF,BICARB,CL/KCL 4,000 ML SOLN.RECON PO ONE (09:00)
[2018-05-13] MEDS: DIVALPROEX NA *ER* EXTEND REL 250 MG TABLET.SA PO SCH ×2 (09:07→21:33)
[2018-05-13] MEDS: MULTIVITAMINS (DAILY MVI) TABLET (FP) PO SCH (09:07)
[2018-05-13] MEDS: QUEtiapine FUMARATE 200 MG TABLET PO SCH ×2 (09:07→21:33)
[2018-05-13] MEDS: PANTOPRAZOLE SODIUM 40 MG VIAL IVPUSH SCH ×2 (09:07→21:33)
--- NOTE | 2018-05-13 11:52 | PN ---
Teaching Attending Note Name of Resident: Vijay King ATTENDING PHYSICIAN STATEMENT I saw and evaluated the patient. I reviewed the resident's note and discussed the case with the resident. I agree with the resident's findings and plan as documented. SUBJECTIVE:asymptomatic. abdominal pain and diarrhea have resolved. tolerating diet. denies Cp, SOB, fever, chills, N/V/C/D OBJECTIVE: Last Vital Signs Temp Pulse Resp BP Pulse Ox 98.5 F 94 H 18 128/79 96 05/13/18 08:03 05/13/18 08:03 05/13/18 08:03 05/13/18 08:03 05/12/18 21:00 General NAD Abdomen soft NT/ND obese ASSESSMENT AND PLAN: 52yo F with PMH depression, hypothyroid, CKD presents with abdominal pain and BRBPR 1. Infectious colitis- Tm 100.6. clinically improved. cont flagyl/levaquin day 2. can likely switch to oral tomorrow. no stool studies obtained as diarrhea has resolved. GI on board 2. Abnormal tranverse colon narrowing- seen on CT. bowel prep today for colonoscopy tomorrow. 3. acute on CKD- possibly medication vs infectin vs dehydration. baseline Cr 1.9. slowly improving. will reduce IVF. avoid nephrotoxic agents. 4. hypokalemia- resolved 5. hypothyroid- cont LT4 6. depression- cont home medications 7. gout- would hold allopurinol in setting of kamron 8. DVT ppx- hep sq
[2018-05-13] MEDS ORDERED: BISACODYL 5 MG TABLET.DR (FP) PO ONE (18:00)
[2018-05-14] MEDS: HEPARIN NA (PORCINE) 5,000 UNITS/ML 1ML VIAL SQ SCH (06:05)
[2018-05-14] MEDS: LEVOTHYROXINE NA 125 MCG TABLET (FP) PO SCH (06:05)
[2018-05-14 07:38] LABS: HEMATOCRIT 33.9 % (32.4-45.2); HEMOGLOBIN 11.5 GM/dL (10.7-15.3); MCH 32.7 pg (25.7-33.7); MCHC 33.9 g/dl (32.0-36.0); MEAN CELL VOLUME 96.5 fl (80-96); MEAN PLT VOLUME 9.7 fl (7.5-11.1); PLATELET COUNT 133 K/MM3 (134-434); RBC 3.52 M/mm3 (3.60-5.2); WHITE BLOOD COUNT 8.2 K/mm3 (4.0-10.0)
[2018-05-14 07:59] LABS: ANION GAP 6 MMOL/L (8-16); BLOOD UREA NITROGEN 17 mg/dL (7-18); CALCIUM 8.3 mg/dL (8.5-10.1); CHLORIDE 110 mmol/L (98-107); CO2 28 mmol/L (21-32); CREATININE 1.9 mg/dL (0.55-1.3); GLUCOSE,RANDOM 86 mg/dL (74-106); POTASSIUM 3.4 mmol/L (3.5-5.1); SODIUM 144 mmol/L (136-145)
[2018-05-14] MEDS: MULTIVITAMINS (DAILY MVI) TABLET (FP) PO SCH (09:51)
[2018-05-14] MEDS: DEXTROSE 5%-0.45% SALINE 1,000 ML IV SCH (09:51)
[2018-05-14] MEDS: DIVALPROEX NA *ER* EXTEND REL 250 MG TABLET.SA PO SCH ×2 (09:51→12:52)
[2018-05-14] MEDS: PANTOPRAZOLE SODIUM 40 MG VIAL IVPUSH SCH ×2 (09:51→12:53)
--- NOTE | 2018-05-14 11:22 | PN ---
Teaching Attending Note Name of Resident: Rose Martínez ATTENDING PHYSICIAN STATEMENT I saw and evaluated the patient. I reviewed the resident's note and discussed the case with the resident. I agree with the resident's findings and plan as documented. SUBJECTIVE:asymptomatic. denies CP, SOB, fever, chills, abdominal pain, N/V/C/D OBJECTIVE: Last Vital Signs Temp Pulse Resp BP Pulse Ox 97.9 F 90 18 121/77 96 05/14/18 10:00 05/14/18 10:00 05/14/18 10:00 05/14/18 10:00 05/13/18 21:00 General NAD Abdomen soft NT/ND obese ASSESSMENT AND PLAN: 52yo F with PMH depression, hypothyroid, CKD presents with abdominal pain and BRBPR 1. Infectious colitis- afebrile. on flagyl/levaquin day 3. will d/c off abx today as pt has clinically improved and liekly viral in nature not requiring abx. no stool studies obtained as diarrhea has resolved. GI on board 2. Abnormal tranverse colon narrowing- seen on CT. NPO for colonoscopy today 3. acute on CKD- possibly medication vs infectin vs dehydration. baseline Cr 1.9. resolved. avoid nephrotoxic agents. 4. hypokalemia- resolved 5. hypothyroid- cont LT4 6. depression- cont home medications 7. gout- would hold allopurinol in setting of kamron 8. DVT ppx- hep sq 9. d/c home today pending result of colonscopy
--- NOTE | 2018-05-14 12:14 | PN ---
Progress Note (short form) - Note Progress Note: GI Procedure Note: Please see scanned colonoscopy report. A severe ulcerating colitis involving the distal transverse and descending colon with skip areas was noted. The location suggests ischemic colitis but an infectious colitis, C diff colitis and inflammatory bowel disease cannot be excluded. I will resume solid diet but advised Victoria to stay overnight to assure that she can tolerate it. She insists on going home. If she leaves I have told her that she cannot return to work until C diff colitis is excluded ( pending). Problem List - Problems (1) Colitis Code(s): K52.9 - NONINFECTIVE GASTROENTERITIS AND COLITIS, UNSPECIFIED (2) Hematochezia Code(s): K92.1 - MELENA (3) History of colon polyps Code(s): Z86.010 - PERSONAL HISTORY OF COLONIC POLYPS (4) History of uterine cancer Code(s): Z85.42 - PERSONAL HISTORY OF MALIGNANT NEOPLASM OF OTH PRT UTERUS (5) History of breast cancer Code(s): Z85.3 - PERSONAL HISTORY OF MALIGNANT NEOPLASM OF BREAST (6) Depression Code(s): F32.9 - MAJOR DEPRESSIVE DISORDER, SINGLE EPISODE, UNSPECIFIED (7) Renal failure Code(s): N19 - UNSPECIFIED KIDNEY FAILURE (8) Hypothyroid Code(s): E03.9 - HYPOTHYROIDISM, UNSPECIFIED (9) Hypertension Code(s): I10 - ESSENTIAL (PRIMARY) HYPERTENSION (10) Hyperlipidemia Code(s): E78.5 - HYPERLIPIDEMIA, UNSPECIFIED (11) Nonalcoholic fatty liver disease Code(s): K76.0 - FATTY (CHANGE OF) LIVER, NOT ELSEWHERE CLASSIFIED (12) Abnormal CT scan, gastrointestinal tract Code(s): R93.3 - ABNORMAL FINDINGS ON DX IMAGING OF PRT DIGESTIVE TRACT
[2018-05-14] MEDS ORDERED: PT OWN MED DRAWER 7, Y5N ONE (12:47)
[2018-05-14] MEDS: QUEtiapine FUMARATE 200 MG TABLET PO SCH (12:51)
[2018-05-14] MEDS ORDERED: POTASSIUM CHLORIDE TABS 20 MEQ TABLET.ER (FP) PO ONE (13:15)
--- NOTE | 2018-05-14 13:51 | DS ---
Physical Exam: SUBJECTIVE: Patient seen this morning. reports she has been having bowel movements overnight but has not noticed any blood. Patient has no complaints. Patient had colonoscopy and was able to tolerate food. OBJECTIVE: Vital Signs Temperature 98.0 F 05/14/18 13:01 Pulse Rate 94 H 05/14/18 13:01 Respiratory Rate 18 05/14/18 13:01 Blood Pressure 139/80 05/14/18 13:01 O2 Sat by Pulse Oximetry (%) 97 05/14/18 13:00 PHYSICAL EXAM GENERAL: The patient is awake, alert, and fully oriented, in no acute distress.. LUNGS: Breath sounds equal, clear to auscultation bilaterally, HEART: Regular rate and rhythm, S1, S2 ABDOMEN: Soft, nontender, nondistended, normoactive bowel sounds, no guarding, no rebound, no hepatosplenomegaly, no masses. EXTREMITIES: 2+ pulses, warm, well-perfused, no edema. PSYCH: Normal mood, normal affect. SKIN: Warm, dry, normal turgor, no rashes or lesions noted. LABS CBC, BMP 05/14/18 06:30 05/14/18 06:30 HOSPITAL COURSE: Date of Admission:05/12/18 Patient admitted to the hospital for bloody diarrhea. Patient treated with 4 days of Flagyl and Levaquin. DC abx as colitis is likely viral cause. Patient underwent Colonoscopy which had removal of two polyps, colitis in distal transverse colon, descending colon, and rectum. The mucosa was ulcerated and erythematous and with skip areas and rectal involvement. Patient to follow up with Dr. Webb in one week to review pathology and c. diff results. Patient Cr: 2.4, kamron improved with fluids and Cr: back to baseline 1.9 stool cx and c diff pending abd/pelvis CT: abnormal left colon with mild periinflammatory changes, questionable narrowing at junction of left colon and transverse cp;pm, fatty infiltration of the liver CXR: no acute pathology, elevated right hemidiaphragm Date of Discharge: 05/14/18 Minutes to complete discharge: 45 Discharge Summary Reason For Visit: COLITIS Current Active Problems Abnormal CT scan, gastrointestinal tract (Chronic) Depression (Chronic) History of breast cancer (Chronic) History of colon polyps (Chronic) History of uterine cancer (Chronic) Hyperlipidemia (Chronic) Hypertension (Chronic) Hypothyroid (Chronic) Nonalcoholic fatty liver disease (Chronic) Renal failure (Chronic) Condition: Improved - Instructions Diet, Activity, Other Instructions: You were admitted to the hospital because of bloody diarrhea. Dr. Webb did a colonoscopy and you have colitis. Colitis is an inflammation in your colon. You should make an appointment to follow up with Dr. Webb in one week to monitor your colitis. Biopsy was done during your exam. You need to follow up for the results. Please make an appointment to follow up with your primary care physician in one week. Please continue your home medications as prescribed. You should return to the Emergency Department if you have bloody diarrhea, nausea, vomiting, headache, chest pain, shortness of breath. Referrals: Jessie Webb MD [Staff Physician] - Disposition: HOME - Home Medications Comprehensive Discharge Medication List: Ambulatory Orders Allopurinol [Zyloprim -] 100 mg PO BID 05/11/18 Divalproex *ER* [Depakote *ER* -] 750 mg PO BID 05/11/18 Furosemide 40 mg PO DAILY 05/11/18 Levothyroxine [Synthroid -] 125 mcg PO DAILY 05/11/18 Multivitamin [Multiple Vitamins] 1 each PO DAILY 05/11/18 Quetiapine Fumarate [Seroquel -] 400 mg PO BID 05/11/18 This patient is new to me today: Yes Date on this admission: 05/14/18 Emergency Visit: No Critical Care patient: No - Discharge Referral Referred to [facility] Med P.C.: No
[2018-05-14 14:39] VITALS: BP 119/69; PULSE 101; TEMP 98.4
--- NOTE | 2018-05-15 15:04 | PATH ---
Surgical Pathology Report Patient Name: KAYLEY SPAULDING Med. Rec. #: [id number] /Age/Gender: 1965 (Age: 52) / F Account: [id number] Location: [facility] MED/SURG Taken: 05/14/2018 Received: 05/14/2018 Reported: 05/15/2018 Physicians: Aubree Olivia M.D. Specimen(s) Received A: RECTUM B: SIGMOID COLON POLYP C: DESCENDING COLON D: DISTAL TRANSVERSE COLON E: ILEUM F: CECUM Clinical History Colitis Postoperative diagnosis: Colon polyps, colitis Final Diagnosis A. RECTUM, POLYPECTOMY: HYPERPLASTIC POLYP. B. SIGMOID COLON, POLYP, POLYPECTOMY: HYPERPLASTIC POLYP. C. DESCENDING COLON, BIOPSY: COLONIC MUCOSA WITH MUCOSAL HEMORRHAGE, HYALINIZATION, MICROCRYPT FORMATION, SURFACE NECROSIS, ACUTE INFLAMMATION, AND FOCAL SUPERFICIAL ACUTE INFLAMMATORY EXUDATE. SEE COMMENT. D. DISTAL TRANSVERSE COLON, BIOPSY: COLONIC MUCOSA WITH MUCOSAL HEMORRHAGE, HYALINIZATION, MICROCRYPT FORMATION, AND FOCAL ACUTE INFLAMMATION. SEE COMMENT. E. ILEUM, BIOPSY: ILEAL MUCOSA WITHOUT SIGNIFICANT PATHOLOGIC FINDINGS. F. CECUM, BIOPSY: COLONIC MUCOSA WITHOUT SIGNIFICANT PATHOLOGIC FINDINGS. Comment: Findings are non-specific. Although compatible with ischemic colitis, differential diagnosis includes infection and medication. Suggest clinical/endoscopic and microbiology studies correlation. Electronically Signed Rose Cortez M.D. Gross Description A. Received in formalin, labeled "rectum" is a melgoza, polypoid portion of soft tissue measuring 0.5 cm. in greatest dimension. The specimen is submitted in toto in one cassette. B. Received in formalin, labeled "sigmoid colon polyp" is a melgoza, irregular portion of soft tissue measuring 0.2 cm. in greatest dimension. The specimen is submitted in toto in one cassette. C. Received in formalin, labeled "descending colon" is a melgoza, irregular portion of soft tissue measuring 0.5 cm. in greatest dimension. The specimen is submitted in toto in one cassette. D. Received in formalin, labeled "distal transverse colon" is a melgoza, irregular portion of soft tissue measuring 0.1 cm. in greatest dimension. The specimen is submitted in toto in one cassette. E. Received in formalin, labeled "terminal ileum biopsy" are 2 melgoza, irregular portions of soft tissue measuring 0.3 and 0.5 cm. in greatest dimension. The specimens are submitted in toto in one cassette. F. Received in formalin, labeled "cecum" are 2 melgoza, irregular portions of soft tissue averaging 0.4 cm. in greatest dimension. The specimens are submitted in toto in one cassette. 05/14/2018 [facility]05/14/2018
== END 2018-05-14 14:46 | disposition home or self-care (01) | DRG 392 ==
LOC: JER 21:43 → MERGE 05-12 03:31 → JERBED 05-12 03:31 → J7W 05-12 08:38
PROVIDERS: ADMIT Internal Medicine; ATTEND Internal Medicine
PROC: 0DBN8ZX Excision of Sigmoid Colon, Via Natural or Artificial Opening Endoscopic, Diagnostic (ICD-10-PCS; 2018-05-14)
PROC: 0DBN8ZX Excision of Sigmoid Colon, Via Natural or Artificial Opening Endoscopic, Diagnostic (ICD-10-PCS; 2018-05-14)
PROC: 0DBQ8ZX Excision of Anus, Via Natural or Artificial Opening Endoscopic, Diagnostic (ICD-10-PCS; principal; 2018-05-14 10:30)
DX: A08.8 Other specified intestinal infections (principal); K55.9 Vascular disorder of intestine, unspecified; K51.90 Ulcerative colitis, unspecified, without complications; M47.9 Spondylosis, unspecified; R16.0 Hepatomegaly, not elsewhere classified; K59.09 Other constipation; E87.6 Hypokalemia; M10.9 Gout, unspecified; R93.3 Abnormal findings on diagnostic imaging of other parts of digestive tract; K76.0 Fatty (change of) liver, not elsewhere classified; K62.1 Rectal polyp; K63.5 Polyp of colon; I12.9 Hypertensive chronic kidney disease with stage 1 through stage 4 chronic kidney disease, or unspecified chronic kidney disease; F32.9 Major depressive disorder, single episode, unspecified; Z85.3 Personal history of malignant neoplasm of breast; Z88.0 Allergy status to penicillin; Z85.42 Personal history of malignant neoplasm of other parts of uterus
CPT/HCPCS: 36415; 71045-TC-FY; 74176-TC; 80048; 82378; 82550; 82553; 82570; 83605; 83615; 83631; 83735; 84100; 84443; 85025; 85027; 86140; 87045; 87046; 87205; 87324; 87449; 88305-TC; 93005; 93010; 99284-25; J0131; J1644

== ENCOUNTER 2020-08-19 05:24 | Day surgery (SDC) | payer OTHER ==
[2020-08-18 10:40] VITALS: BMI 35.6
[2020-08-19 11:21] VITALS: TEMP 97.1
[2020-08-19 12:19] VITALS: BP 119/58; PULSE 16
== END 2020-08-19 12:18 | disposition home or self-care (01) ==
LOC: JASU-ENDO 05:24
PROVIDERS: ATTEND Internal Medicine Gastroenterology
PROC: 0DJD8ZZ Inspection of Lower Intestinal Tract, Via Natural or Artificial Opening Endoscopic (ICD-10-PCS; principal; 2020-08-19 10:45)
DX: Z12.11 Encounter for screening for malignant neoplasm of colon (principal); Z86.010 Personal history of colon polyps; K57.30 Diverticulosis of large intestine without perforation or abscess without bleeding; K64.8 Other hemorrhoids; K59.89 Other specified functional intestinal disorders

== ENCOUNTER 2020-11-12 17:53 | Emergency (ER) | payer OTHER ==
[2020-11-12 18:18] VITALS: BP 116/72; PULSE 102; TEMP 98; BMI 34.7
== END 2020-11-12 20:06 | disposition home or self-care (01) ==
LOC: JERFT 17:53
DX: M25.532 Pain in left wrist (principal)
CPT/HCPCS: 73030-TC-LT-FY; 73060-TC-LT-FY; 73070-TC-LT-FY; 73090-TC-LT-FY; 73110-TC-LT-FY; 73130-TC-LT-FY; 99284-25

== ENCOUNTER 2021-10-10 12:23 | Emergency (ER) | payer OTHER ==
[2021-10-10 12:31] VITALS: BP 133/75; PULSE 99; RESP 17; TEMP 98.9; BMI 36.6
[2021-10-10 13:22] LABS: EPI CELLS 12 /uL (0-25.1); HYALINE CASTS 0 /uL (0-3.1); PH,URINE 6.5 (5.0-8.0); URINE APPEARANCE CLEAR; URINE BACTERIA 152 /uL (0-1359); URINE BILIRUBIN NEGATIVE (NEGATIVE); URINE COLOR YELLOW; URINE GLUCOSE (UA) NEGATIVE (NEGATIVE); URINE KETONE NEGATIVE (NEGATIVE); URINE LEUK ESTERASE TRACE (NEGATIVE); URINE NITRITE NEGATIVE (NEGATIVE); URINE PROTEIN TRACE (NEGATIVE); URINE RBC 3 /uL (0-23.9); URINE UROBILINOGEN 0.2 mg/dL (0.2-1.0); URINE WBC 42 /uL (0-25.8)
[2021-10-10] MEDS ORDERED: FLUCONAZOLE 150 MG TABLET PO ONE ×2 (13:32→13:36)
== END 2021-10-10 13:39 | disposition home or self-care (01) ==
LOC: JERFT 12:23 → JER 12:23 → JERFT 13:39
DX: N30.90 Cystitis, unspecified without hematuria (principal)
CPT/HCPCS: 36415; 81003; 87086; 87491; 87591; 87661; 99283-25

== ENCOUNTER 2021-12-08 21:10 | Emergency (ER) | payer OTHER ==
[2021-12-08 21:24] VITALS: BP 133/93; PULSE 96; RESP 18; TEMP 98; BMI 36.6
[2021-12-08] MEDS ORDERED: ACETAMINOPHEN 500 MG TABLET (FP) PO ONE (22:18)
[2021-12-08] MEDS ORDERED: ACETAMINOPHEN 500 MG TABLET (FP) ONE (22:20)
== END 2021-12-08 22:30 | disposition home or self-care (01) ==
LOC: FER 21:10
DX: S83.91XA Sprain of unspecified site of right knee, initial encounter (principal); W19.XXXA Unspecified fall, initial encounter
CPT/HCPCS: 73562-TC-RT-FY; 99283-25

== ENCOUNTER 2021-12-09 09:29 | Emergency (ER) | payer OTHER ==
[2021-12-09 09:42] VITALS: BP 109/69; PULSE 87; RESP 18; TEMP 97.9; BMI 35.6
== END 2021-12-09 09:52 | disposition left against medical advice (07) ==
LOC: JER 09:29
DX: M25.569 Pain in unspecified knee (principal)
CPT/HCPCS: 99283-25

== ENCOUNTER → 2024-04-11 | Day surgery (SDC) | payer OTHER | END | disposition home or self-care (01) | LOC: FMAMMOTONE 10:14 | PROVIDERS: ATTEND Physician Assistant | PROC: 0HBU3ZX Excision of Left Breast, Percutaneous Approach, Diagnostic (ICD-10-PCS; principal; 2024-04-11) | DX: N60.12 Diffuse cystic mastopathy of left breast (principal); N60.92 Unspecified benign mammary dysplasia of left breast; N64.89 Other specified disorders of breast; R92.1 Mammographic calcification found on diagnostic imaging of breast | CPT/HCPCS: 19081; 76098-TC-FY; 88305-TC; 88341-TC; 88342-TC ==